=== PATIENT | male | born 1950 ===

== ENCOUNTER 2017-12-03 11:00 | Inpatient (IN) | payer OTHER ==
[~2017-12-03] VITALS: Ht 165.1 cm; Wt 70.3 kg
[2017-12-03] MEDS ORDERED: SYNTHROID100 MCG PO (11:52)
[2017-12-03] MEDS ORDERED: COZAAR100 MG PO (11:52)
[2017-12-03] MEDS ORDERED: SIMVASTATIN10 MG PO (11:52)
[2017-12-03] MEDS ORDERED: NORVASC5 MG PO (11:52)
== END 2017-12-12 11:11 | disposition home or self-care (01) | DRG 708 ==
LOC: SURH 12-10 05:30 → O/R 12-10 05:30 → SURG 12-10 07:00 → SURH 12-10 13:10 → O/R 12-10 14:00 → SURH 12-10 14:02
PROVIDERS: Urology
PROC: 07TC0ZZ Resection of Pelvis Lymphatic, Open Approach (ICD-10-PCS; 2017-12-10)
PROC: 0VT00ZZ Resection of Prostate, Open Approach (ICD-10-PCS; principal; 2017-12-10 07:00)
DX: C61 Malignant neoplasm of prostate (principal); I10 Essential (primary) hypertension

== ENCOUNTER 2018-01-09 10:50 | Outpatient (CLI) | payer OTHER ==
[~2018-01-09 10:50] MED LIST: COZAAR100 MG PO; NORVASC5 MG PO; SIMVASTATIN10 MG PO; SYNTHROID100 MCG PO
== END 2018-01-09 10:52 | disposition home or self-care (01) ==
LOC: SONOGRAMA 10:50
DX: C61 Malignant neoplasm of prostate (principal); R31.9 Hematuria, unspecified